=== PATIENT | male | born 1985 | race Caucasian/White ===

== ENCOUNTER 2025-07-27 09:21 | Outpatient (REF) | payer BC, SELFPAY ==
--- OUTSIDE RECORDS SUMMARY | 2025-07-25 13:00 | XMS_ITS | Encounter Summary ---
Author Organization [employer] Address [address] [place] [address] Care Team Providers Care Information Assurance Specialist Name Role Phone Nic Neal CNP Primary Care Provider [phone] Encounter Details Date Type Department Care Team (Late st Contact Info) Description 07/25/2025 1:00 PM EST Office Visit [facility] [address] [place], [place] [id number] Ángel DarienCLAIRE bonilla [address] [place], [place] [phone] Encounter for physical examination (Primary Dx); Encounter to establish care Social History Tobacco Use Types Packs/Day Years Used Date Smoking Tobacco: Former Cigarettes Smokeless Tobacco: Never Alcohol Use Standard Drinks/Week Comments Yes 4 (1 standard drink = 0.6 oz pur e alcohol) Depression Answer Date Recorded Patient Health Questionnaire-9 Score 0 07/25/2025 Patient Health Questionnaire-9 Score 0 07/25/2025 Last PHQ-9: Questionnaire Data Not on file 1 09/24/2024 Housing Stability Answer Date Recorded What is your housing situation today? I have ivone bennett 07/18/[address] you li ve. Do you have problems with any of the following? None of the above 07/18/2025 Food Insecurity Answer Date Recorded Within the past 12 months, y ou worried that your food would run out before you got money to buy more: Never True 07/18/2025 Within the past 12 months,th e food you bought just didn't last and you didn't have enough money to get more: Never True Transportation Answer Date Recorded In the past 12 months, has l ack of transportation kept you from medical appts, meetings, work or from getting things needed for daily living? No 07/18/2025 Utilities Answer Date Recorded In the past 12 months, has t he electric, gas, oil or water company threatened to shut off services in your home? No 07/18/2025 Depression Answer Date Recorded Patient Health Questionnaire-2 Score 0 07/25/2025 Internet Access Answer Date Recorded Internet Access Q1 Yes 07/18/2025 Internet Access Q2 Not on file 07/18/2025 Sex and Gender Information Value Date Recorded Sex Assigned at Male 06/14/2025 3:08 PM EDT Legal Sex Male 3:05 PM EDT Gender Identity Male 07/25/2025 11:04 AM EST Sexual Orientation Straight 07/25/2025 3: 37 PM EST documented as of this encounter Last Filed Vital Signs Vital Sign Reading Time Taken Comments Blood Pressure 120/82 07/25/2025 1:05 PM EST Pulse 76 07/25/2025 1:05 PM EST Temperature 36.2 C (97.2 F) 07/25/2025 1:05 PM EST Respiratory Rate 14 07/25/2025 1:05 PM EST Oxygen Saturation 97% 07/25/2025 1:05 PM EST Inhaled Oxygen Concentration - - Weight 65.3 kg (144 lb) 07/25/2025 1:05 PM EST Height 165.1 cm (5' 5 ) 07/25/2025 1:05 PM EST Body Mass Index 23.96 07/25/2025 1:05 PM EST documented in this encounter Functional Status * Over the past 2 weeks, how often have you been bothered by any of the following problems? Question Answer Date of Assessment Author Patient Health Questionnaire -2 Score 0 07/25/2025 1:07 PM EST Kendall Fried MA * Little interest or pleasure in doing things Answer Date of Assessment Author Not at all 07/25/2025 1:07 PM EST Eugenie-Co Zoie mello MA * Feeling down, depressed, or hopeless Answer Date of Assessment Author Not at all 07/25/2025 1:07 PM EST Eugenie-Co Zoie mello MA * Trouble falling or staying asleep, or sleeping too much Answer Date of Assessment Author Not at all 07/25/2025 1:07 PM EST Eugenie-Co Zoie mello MA * Feeling tired or having little energy Answer Date of Assessment Author Not at all 07/25/2025 1:07 PM EST Traore-Co Zoie mello [place] * Poor appetite or overeating Answer Date of Assessment Author Not at all 07/25/2025 1:07 PM EST Traore-Co Zoie mello MA * Feeling bad about yourself - or that you are a failure or have let yourself or your family down Answer Date of Assessment Author Not at all 07/25/2025 1:07 PM EST Traore-Co Zoie mello MA * Trouble concentrating on things, such as reading the newspaper or watching television Answer Date of Assessment Author Not at all 07/25/2025 1:07 PM EST Eugenie-Co Zoie mello MA * Moving or speaking so slowly that other people could have noticed? Or the opposite - being so fidgety or restless that you have been moving around a lot more than usual. Answer Date of Assessment Author Not at all 07/25/2025 1:07 PM JOSÉ Traore-Co Zoie mello MA * Thoughts that you would be better off or hurting yourself in some way Answer Date of Assessment Author Not at all 07/25/2025 1:07 PM EST Traore-Co Zoie mello MA * Patient Health Questionnaire-9 Score Answer Date of Assessment Author 0 07/25/2025 1:07 PM JOSÉ Traore-Co Zoie mello MA * Over the last 2 weeks, how often have you been bothered by any of the following problems? Question Answer Date of Assessment Author Feeling nervous, anxious, or on edge 0 07/25/2025 1:07 PM EST Kendall Fried MA Not being able to stop or control worrying 0 07/25/2025 1:07 PM EST Kendall Fried MA Worrying too much about different things 0 07/25/2025 1:07 PM EST Kendall Fried MA Trouble relaxing 0 07/25/2025 1:07 PM EST Zoie Harding MA Being so restless that it is hard to sit still 0 07/25/2025 1:07 PM EST Kendall Fried MA Becoming easily annoyed or irritable 0 07/25/2025 1:07 PM Kendall Beal MA Feeling afraid as if somethi ng awful might happen 0 07/25/2025 1:07 PM Kendall Beal MA PLACIDO-7 Total Score 0 07/25/2025 1:07 PM Zoie Beal MA documented as of this encounter Progress Notes * Nic CLAIRE Neal - 07/25/2025 1:00 PM EST Subjective: Moiz Mackay is a 40 y.o. male who presents to the office for a new patient visit. Previous PCP unknown. Current concerns: None, just looking to establish care reports last PCP visit was over 3 yrs ago. Problem List[1] Surgical History[2] Family History[3] Social History Living situation: has secure housing Employment/Education: work [employer] Substance use: former smoker, unknown quit date reports quit years ago Sexual activity: Yes, AFAB partners, declines STD screening today Mental health: Patient Health Questionnaire-9 Score: 0 (07/25/2025 1:07 PM) Patient Health Questionnaire-2 Score: 0 (07/25/2025 1:07 PM) Thoughts that you would be better off or hurting yourself in some way: Not at all (07/25/2025 1:07 PM) Allergies[4] Review of Systems Vitals: 07/25/25 1305 BP: 120/82 BP Location: Left arm Patient Position: Sitting BP Cuff Size: Adult Pulse: 76 Resp: 14 Temp: 97.2 ??F (36.2 ??C) TempSrc: Oral SpO2: 97% Weight: 144 lb (65.3 kg) Height: 5' 5 (1.651 m) Physical Exam Vitals reviewed. Constitutional: General: He is not in acute distress. Appearance: Normal appearance. He is not ill-appearing, toxic-appearing or diaphoretic. HENT: Head: Normocephalic and atraumatic. Eyes: Extraocular Movements: Extraocular movements intact. Pupils: Pupils are equal, round, and reactive to light. Cardiovascular: Rate and Rhythm: Normal rate and regular rhythm. Pulses: Normal pulses. Heart sounds: Normal heart sounds. No murmur heard. No friction rub. No gallop. Pulmonary: Effort: Pulmonary effort is normal. No respiratory distress. Breath sounds: Normal breath sounds. No stridor. No wheezing, rhonchi or rales. Chest: Chest wall: No tenderness. Musculoskeletal: Cervical back: Neck supple. No tenderness. Right lower leg: No edema. Left lower leg: No edema. Lymphadenopathy: Cervical: No cervical adenopathy. Neurological: General: No focal deficit present. Mental Status: He is alert and oriented to person, place, and time. Mental status is at baseline. Psychiatric: Mood and Affect: Mood normal. Behavior: Behavior normal. Thought Content: Thought content normal. Judgment: Judgment normal. Assessment & Plan Encounter for physical examination 40 y/o with no prior medical history with normal PE showing no acute abnormalities. 1. Anticipatory guidance discussed. Specific topics reviewed: drugs, ETOH, and tobacco, importance of regular dental care, importance of regular exercise, importance of varied diet, minimize junk food, and sex; STD and prevention as appropriate. 2. Age appropriate screenings discussed/recommended 3. Pt declines all due vaccinations today. Routine Screening and Health Maintenance Optometry: Yes Dental: Yes 4 months agoo was last visit ASCVD risk: 40 y.o. male former smoker Lab Review: orders written for new lab studies as appropriate; see orders Orders: Lipid Panel, Standard; Future CBC auto differential; Future Comprehensive Metabolic Panel; Future HIV-1/2 Antigen and Antibodies, Fourth Generation, with Reflexes; Future Hepatitis C Antibody with Reflex to HCV, RNA, Quantitative, Real-Time PCR; Future Hepatitis B Surface Antibody, Qualitative; Future Hepatitis B Core Antibody, Total; Future Hepatitis B surface antigen, EIA; Future Hemoglobin A1c; Future Chlamydia/N. Gonorrhoeae, PCR, Urine RPR (Monitor) with Reflex to Titer; Future Encounter to establish care Current Medications[5] There is no immunization history on file for this patient. No follow-ups on file. [1] There is no problem list on file for this patient. [2] Past Surgical History: Procedure Laterality Date VASECTOMY 2014 [3] Family History Problem Relation Name Age of Onset Diabetes Mother Shanell colon 40 - 49 [4] No Known Allergies [5] No current outpatient medications on file. No current facility-administered medications for this visit. documented in this encounter Plan of Treatment Scheduled Orders Name Type Priority Associated Diagnoses Orde r Schedule Lipid Panel, Standard Lab Routine Encounter for physical examination Expected: 07/25/2025 (Approximate), Expires: 07/25/2026 CBC auto differential Lab Routine Encounter for physical examination Expected: 07/25/2025 (Approximate), Expires: 07/25/2026 Comprehensive Metabolic Panel Lab Routine Encounter for physical examination Expected: 07/25/2025 (Approximate), Expires: 07/25/2026 HIV-1/2 Antigen and Antibodies, Fourth Generation, with Reflexes Lab Routine Encounter for physical examination Expected: 07/25/2025 (Approximate), Expires: 07/25/2026 Hepatitis C Antibody with Reflex to HCV, RNA, Quantitative, Real-Time PCR Lab Routine Encounter for physical examination Expected: 07/25/2025, Expires: 07/25/2026 Hepatitis B Surface Antibody, Qualitative Lab Routine Encounter for physical examination Expected: 07/25/2025 (Approximate), Expires: 07/25/2026 Hepatitis B Core Antibody, Total Lab Routine Encounter for physical examination Expected: 07/25/2025 (Approximate), Expires: 07/25/2026 Hepatitis B surface antigen, EIA Lab Routine Encounter for physical examination Expected: 07/25/2025 (Approximate), Expires: 07/25/2026 Hemoglobin A1c Lab Routine Encounter for physical examination Expected: 07/25/2025 (Approximate), Expires: 07/25/2026 Chlamydia/N. Gonorrhoeae, PCR, Urine Lab Routine Encounter for physical examination Ordered: 07/25/2025 RPR (Monitor) with Reflex to Titer Lab Routine Encounter for physical examination Expected: 07/25/2025, Expires: 07/25/2026 documented as of this encounter Visit Diagnoses Diagnosis Encounter for physical examination- Primary Encounter to establish care documented in this encounter Additional Health Concerns Assessment Noted Time PHQ-9 Depression Total Score: 0 07/25/20 1:07 PM EST documented as of this encounter Care Teams Information Assurance Specialist Relationship Specialty Start Date End Date Nic Neal CNP [address] [place] [address] PCP - General Family Medicine 07/25/25 documented as of this encounter
--- OUTSIDE RECORDS SUMMARY | 2025-07-27 10:25 | XMS_ITS | Encounter Summary ---
Author Organization [employer] Address [address] [place] [address] Care Team Providers Care Maintenance Man Name Role Phone Unavailable Primary Care Provider Unavailabl e Encounter Details Date Type Department Care Team (Latest Contact Info) Description 07/24/2025 Travel Social History Tobacco Use Types Packs/Day Years Used Date Smoking Tobacco: Never Assessed Depression Answer Date Recorded Patient Health Questionnaire-9 [...] PM EST documented as of this encounter Plan of Treatment Not on file documented as of this encounter Visit Diagnoses Not on filedocumented in this encounter
--- OUTSIDE RECORDS SUMMARY | 2025-07-27 10:25 | XMS_ITS | Encounter Summary ---
Author Organization [employer] Address [address] [place] [address] Care Team Providers Care Radio Announcer Name Role Phone Nic Neal CLAIRE Primary Care Provider [phone] Encounter Details Date Type Department Care Team (Latest Contact Info) Description 07/25/2025 Travel Social History Tobacco Use Types Packs/Day [...] PM EST documented as of this encounter Functional Status * Over the [...] PM EST Eugenie-Co Zoie mello MA * Poor appetite or overeating Answer Date of Assessment Author Not at all 07/25/2025 1:07 PM EST Eugenie-Co Zoei mello MA * Feeling bad about yourself [...] of Assessment Author 0 07/25/2025 1:07 PM EST Traore-Co Zoie mello MA * Over the [...] Trouble relaxing 0 07/25/2025 1:07 PM EST D Zoie Morgan MA Being so restless that it is hard to sit still 0 07/25/2025 1:07 PM EST Kendall Fried MA Becoming easily annoyed or irritable 0 07/25/2025 1:07 PM EST Eugenie-ColonKendall MA Feeling afraid as if somethi ng awful might happen 0 07/25/2025 1:07 PM EST Kendall Fried MA PLACIDO-7 Total Score 0 07/25/2025 1:07 PM EST Zoie Fried MA documented as of this encounter Plan of Treatment Not on file documented as of this encounter Visit Diagnoses Not on filedocumented in this encounter Additional Health Concerns Assessment Noted Time PHQ-9 Depression Total Score: 0 07/25/20 1:07 PM EST documented as of this encounter Care Teams Radio Announcer Relationship Specialty Start Date End Date Nic Neal CNP [address] [place] [address] NIMASHUN SHAFER [id number] PCP - General Family Medicine 07/25/25 documented as of this encounter
--- OUTSIDE RECORDS SUMMARY | 2025-07-27 10:25 | XMS_ITS | Clinical Summary ---
Author Organization [employer] Address [address] [facility] [facility] [address] [place] [address] Care Team Providers Care Line Supply Name Role Phone Nic Neal CNP Primary Care Provider [phone] Allergies No known active allergies Encounters Date Type Department Care Team Description 07/25/2025 1:00 PM EST Office Visit [facility] [address] [place] [address] Nic Neal CNP Encounter for physical examination (Primary Dx); Encounter to establish care 07/25/2025 Travel 07/24/2025 Travel 07/18/2025 Patient Outreach [facility] [address] [place] [address] Brenden Carlin MD Pre-visit Planning (SDOH screening negative and Tobacco screening negative) 07/17/2025 Telephone [facility] [address] [place] [address] Corky Zoie W[place] chart prep from Last 3 Months Family History Medical History Relation Name Comments Diabetes Mother Shanell colon Relation Name Status Comments Mother Shanell colon Alive Social History Tobacco Use Types Packs/Day Years [...] Orientation Straight 07/25/2025 3: 37 PM EST Last Filed Vital Signs Vital Sign Reading [...] Mass Index 23.96 07/25/2025 1:05 PM EST Plan of Treatment Health Maintenance Due Date Last Done Comments HIV Screening 1985 Lipid Panel 1985 Family Planning (PISQ) 2000 HPV Vaccines (1 - Male 3-dos e series) 2000 Hepatitis C Screening 2003 DTaP/Tdap/Td Vaccines (1 - Tdap) 2004 Hepatitis B Vaccines (1 of 3 - 19+ 3-dose series) 2004 COVID-19 Vaccine (1 - 4-2 5 season) 2025 Influenza Vaccine (#1) 2025 Disability Screening 07/24/2026 07/24/2025 Alcohol/Substance Use Screening 07/25/2026 07/25/2025 Depression Screening 07/25/2026 07/25/2025, 07/25/2025 SDOH Screening 07/25/2026 07/25/2025 Tobacco Screening 07/25/2026 07/25/2025 Zoster Vaccines (1 of 2) 2035 RSV Patients and Patients Aged 60 years or older (1 - 1-dose 75+ series) 2060 HIB Vaccines Aged Out No longer eligi ble based on patient's age to complete this topic Hepatitis A Vaccines Aged Out No long er eligible based on patient's age to complete this topic IPV Vaccines Aged Out No longer eligi ble based on patient's age to complete this topic Meningococcal B Vaccine Aged Out No l onger eligible based on patient's age to complete this topic Meningococcal Vaccine Aged Out No funmilayo graciela eligible based on patient's age to complete this topic Pneumococcal Vaccine: Pediatrics (0 to 5 Years) and At-Risk Patients (6 to 49) Years Aged Out No longer eligible b ased on patient's age to complete this topic RSV under 20 months Aged Out No longe r eligible based on patient's age to complete this topic Rotavirus Vaccines Aged Out No longer eligible based on patient's age to complete this topic Insurance BS PPO Care Teams Line Supply Relationship Specialty Start Date End Date Nic Neal CNP [address] [place] [address] PCP - General Family Medicine 07/25/25
[2025-07-27 14:11] LABS: MANUAL DIFF FLAG NO
[2025-07-27 14:15] LABS: Hematocrit 42.4 % (42.0-52.0); Hemoglobin 13.8 g/dl (14.0-18.0); Imm Gran Abs Auto 0.01 X10*3/uL (0.00-0.03); Imm Gran Pct Auto 0.2 % (0.0-0.4); Lymphocytes Absolute Auto 1.2 X10*3/uL (1.2-4.9); Mean Corpuscular HGB Conc 32.5 g/dl (31.0-36.0); Mean Corpuscular Hemoglobin 28.8 pg (27.0-33.0); Mean Corpuscular Volume 88.5 fL (80.0-98.0); NRBC Abs Auto 0.000 X10*3/uL (0.0-0.012); NRBC Pct Auto 0.0 /100WBC (0.0-0.2); Platelet Count 196 X10*3/uL (160-400); Red Blood Count 4.79 X10*6/uL (4.60-5.80); White Blood Count 4.7 X10*3/uL (4.8-10.8)
[2025-07-27 14:30] LABS: Alanine Aminotransferase 31 U/L (0-40); Albumin Level 4.7 g/dL (3.5-5.0); Alkaline Phosphatase 64 U/L (39-117); Anion Gap 10 (12-20); Aspartate Amino Transferase 26 U/L (5-37); Blood Urea Nitrogen 17 mg/dL (9-16); Calcium 9.2 mg/dL (8.4-10.2); Carbon Dioxide 28 mmol/L (22-29); Chloride 106 mmol/L (96-108); Cholesterol 193 mg/dL (<200); Estimated Glomerular Filt Rate > 60; HDL Cholesterol 44 mg/dL (>40); Potassium 3.8 mmol/L (3.3-5.1); Sodium 140 mmol/L (135-145); Total Protein 7.6 g/dL (6.5-8.0); Triglycerides 95 mg/dL (<150)
[2025-07-28 07:47] LABS: HBS Num1 > 1000.00 mIU/mL (0-7.99); HBc Num1 0.06 S/CO (0.00-0.79); HBsAGNum1 0.54 S/CO (0.00-0.99); HIV Num 1 0.06 S/CO (0.00-0.99); Hepatitis B Surface Antigen Negative (Negative); ~HepC Num1 0.06 S/CO (0.00-0.79); ~Hepatitis B Surface Antibody REACTIVE (Nonreactive); ~Hepatitis C Antibody Nonreactive (Nonreactive)
== END 2025-07-27 09:22 | disposition home or self-care (01) ==
LOC: HO.CHCLDS 09:21
DX: Z00.00 Encounter for general adult medical examination without abnormal findings (principal); Z11.4 Encounter for screening for human immunodeficiency virus [HIV]; Z13.1 Encounter for screening for diabetes mellitus; Z13.6 Encounter for screening for cardiovascular disorders
CPT/HCPCS: 36415; 80053; 80061; 83036; 85025; 86592; 86704; 86706; 86803; 87340; 87389